=== PATIENT | female | born 1985 ===

== ENCOUNTER 2019-04-29 10:24 | Outpatient (CLI) | payer OTHER ==
[~2019-04-29] VITALS: Ht 157.5 cm; Wt 77.1 kg
== END 2019-04-29 10:40 | disposition home or self-care (01) ==
LOC: OFIC 805 10:24
DX: H61.22 Impacted cerumen, left ear (principal); R22.1 Localized swelling, mass and lump, neck; E04.8 Other specified nontoxic goiter; E03.8 Other specified hypothyroidism; Q17.8 Other specified congenital malformations of ear; Q67.0 Congenital facial asymmetry; G51.8 Other disorders of facial nerve; J31.0 Chronic rhinitis

== ENCOUNTER 2019-04-29 13:28 | Outpatient (CLI) | payer OTHER | END 2019-04-29 13:39 | disposition home or self-care (01) | LOC: TOM 13:28 | DX: E03.8 Other specified hypothyroidism (principal) ==

== ENCOUNTER 2024-09-11 09:31 | Day surgery (SDC) | payer OTHER ==
[2024-09-08 09:36] VITALS: BP 110/77
[2024-09-08 09:36] LABS: URINE APPEARANCE Clear; URINE BILIRRUBIN Negative (NEGATIVE); URINE BLOOD Negative; URINE COLOR Yellow; URINE GLUCOSE Negative (NEGATIVE); URINE KETONE Negative (NEGATIVE); URINE LEUKOCYTE Negative; URINE NITRATE Negative; URINE PROTEIN Negative (NEGATIVE)
[2024-09-08 09:37] LABS: URINE BACTERIA 140.7 uL (0.0-1933); URINE EPITHELIAL CELLS 15.9 uL (0.0-38.8); URINE RBC 4.1 uL (0.0-20.8); URINE WBC 10.7 uL (0.0-23.2)
[2024-09-08 09:39] LABS: HEMATOCRIT 39.6 % (36.0-45.00); HEMOGLOBIN 13.3 g/dL (12.0-15.00); MEAN CELL VOLUME 86.6 fL (80.00-100.00); MEAN CORPUSCULAR HGB CONC 33.5 g/dl (32.0-36.0); PLATELET COUNT 213 K/uL (150-450); RED BLOOD COUNT 4.57 M/uL (4.00-6.00); RED CELL DISTRIBUTION WIDTH 13.7 % (11.5-14.5)
[2024-09-08 09:56] LABS: PARTIAL THROMBOPLASTIN TIME 29.9 SECONDS (22.0-34.0); PROTHROMBIN TIME 10.9 SECONDS (9.0-11.5)
[2024-09-08 10:31] LABS: ALBUMIN 3.1 gm/dL (3.4-5.0); BILIRUBIN TOTAL 0.4 mg/dL (0.3-1.2); CALCIUM 8.9 mg/dL (8.5-10.1); CREATININE SERUM 0.42 mg/dL (0.55-1.02); GFR 167.1; GLOBULINA 3.4 G/DL (2.4-3.5); POTASSIUM 3.97 mEq/L (3.5-5.1); TOTAL PROTEIN 6.5 gm/dL (6.4-8.2)
[~2024-09-11] VITALS: Ht 160 cm; Wt 95.3 kg
[~2024-09-11 09:31] MED LIST: AMANTADINE100 M1 PO; DIVALPROEX SOD500 M1 PO; INVEGA3 MG PO
[2024-09-11] MEDS ORDERED: BUPIVACAINE HCL/MPF 0.5% 30ML VIAL ONE (13:12)
[2024-09-11] MEDS ORDERED: CEFAZOLIN SODIUM 1,000 MG VIAL ONE (13:13)
[2024-09-11] MEDS ORDERED: LIDOCAINE HCL 1%/EPINEPHRINE 20ML VIAL IJ ONE (13:20)
[2024-09-11] MEDS ORDERED: KETOROLAC TROMETHAMINE 30 MG VIAL ONE (13:20)
[2024-09-11] MEDS ORDERED: SUGAMMADEX SODIUM 200 MG/2 ML VIAL IV ONE (15:11)
[2024-09-11] MEDS ORDERED: MORPHINE SULFATE 4 MG/ML VIAL IV ONE ×2 (15:45→16:30)
[2024-09-11] MEDS ORDERED: BUPIVACAINE HCL 30 ML VIAL IJ ONE (21:30)
[2024-09-11] MEDS ORDERED: CEFAZOLIN SODIUM 1,000 MG VIAL IV ONE (21:30)
== END 2024-09-11 17:20 | disposition home or self-care (01) ==
LOC: CIR.AMB 09:31
PROVIDERS: ATTEND Orthopaedic Surgery
DX: S52.121A Displaced fracture of head of right radius, initial encounter for closed fracture (principal); S53.21XA Traumatic rupture of right radial collateral ligament, initial encounter; S53.3 Traumatic rupture of ulnar collateral ligament; Z91.041 Radiographic dye allergy status; Z91.013 Allergy to seafood
CPT/HCPCS: 24343; 24666; L8699